=== PATIENT | female | born 1995 | race Caucasian/White ===

== ENCOUNTER 2019-05-08 10:00 | Inpatient (IN) | payer OTHER ==
[~2019-05-08] VITALS: Ht 175.3 cm; Wt 106.9 kg
[2019-05-08] MEDS ORDERED: ACETAMINOPHEN 325 MG TABLET PO PRN (10:30)
[2019-05-08] MEDS ORDERED: PLEASE ENTER HEIGHT AND WEIGHT MC SCH (11:00)
[2019-05-08] MEDS ORDERED: PLEASE ENTER ALLERGIES MC SCH (11:00)
[2019-05-08 12:18] VITALS: BP 134/88
[2019-05-08] MEDS ORDERED: LURA20TA PO (12:56)
[2019-05-08] MEDS ORDERED: POLYETHYLENE GLYCOL 17 GM PACKET PO PRN (13:00)
[2019-05-08] MEDS ORDERED: BISACODYL 10 MG SUPP PR PRN (13:00)
[2019-05-08] MEDS ORDERED: ONDANSETRON ODT 4 MG PO PRN (13:00)
[2019-05-08 19:32] VITALS: BP 129/85
[2019-05-08] MEDS: LURASIDONE 20 MG TABLET PO SCH (20:59)
[2019-05-08] MEDS: BENZTROPINE 1 MG TABLET PO SCH (20:59)
[2019-05-08] MEDS ORDERED: DOCUSATE 100 MG CAPSULE PO PRN (21:00)
[2019-05-09 06:01] LABS: BASOPHILS # (AUTO) 0.02 x10^3/uL (0-0.1); BASOPHILS % (AUTO) 0 % (0-1); EOSINOPHILS # (AUTO) 0.27 x10^3/uL (0-0.4); EOSINOPHILS % (AUTO) 2 % (1-7); LYMPHOCYTES # (AUTO) 2.43 x10^3/uL (1-3.4); LYMPHOCYTES % (AUTO) 22 % (22-44); MD NO; MEAN CORPUSCULAR HEMOGLOBIN 28.6 pg (27.0-34.8); MEAN CORPUSCULAR VOLUME 89.4 fL (80-100); MEAN PLATELET VOLUME 8.7 fL (7.4-10.4); MONOCYTES # (AUTO) 1.07 x10^3/uL (0.2-0.8); MONOCYTES % (AUTO) 10 % (2-9); NEUTROPHILS # (AUTO) 7.48 x10^3/uL (1.8-6.8); NEUTROPHILS % (AUTO) 66 % (42-75); PLATELET COUNT 241 x10^3/uL (130-400); RED CELL DISTRIBUTION WIDTH 14.5 % (9.6-15.2)
[2019-05-09 06:24] LABS: ANION GAP 8 mmol/L (5-15); CALCIUM 9.2 mg/dL (8.5-10.1); CHLORIDE 109 mmol/L (98-107)
[2019-05-09 06:40] LABS: HCT (SEDRATE) 42.9 % (34.6-47.8)
[2019-05-09 06:51] LABS: CHOL/HDL RATIO 3.4; CHOLESTEROL, TOTAL 117 mg/dL (140-239); CREATININE 0.85 mg/dL (0.55-1.02); FREE T4 (FREE THYROXINE) 1.12 ng/dL (0.76-1.46); HDL CHOL % 29 % (28-40); HDL CHOLESTEROL (DIRECT) 34 mg/dL (40-60); LDL CHOLESTEROL,CALCULATED 66 mg/dL (54-169); LDL/HDL RATIO 1.9 (0.5-3.0); THYROID STIMULATING HORMONE 0.453 mIU/L (0.358-3.740); TRIGLYCERIDES 85 mg/dL (50-200); VLDL CHOLESTEROL 17 mg/dL (0-25)
[2019-05-09 07:30] VITALS: BP 118/70
[2019-05-09] MEDS ORDERED: NICOTINE 14MG/24 HR PATCH.TD24 ONE (09:04)
[2019-05-09] MEDS: ARIPIPRAZOLE 10 MG TABLET PO SCH (09:06)
[2019-05-09] MEDS: NICOTINE 14MG/24 HR PATCH.TD24 TD SCH (09:12)
[2019-05-09 16:22] LABS: CULTURE INDICATED? YES; MICROSCOPIC AUTO
[2019-05-09 19:41] VITALS: BP 104/64
[2019-05-09] MEDS: BENZTROPINE 1 MG TABLET PO SCH (20:36)
[2019-05-09] MEDS: LURASIDONE 20 MG TABLET PO SCH (20:36)
[2019-05-10 07:00] VITALS: BP 136/97
[2019-05-10] MEDS: ARIPIPRAZOLE 10 MG TABLET PO SCH (08:52)
[2019-05-10] MEDS: NICOTINE 14MG/24 HR PATCH.TD24 TD SCH (08:56)
[2019-05-10] MEDS ORDERED: BENZ1TAB61 PO (16:10)
[2019-05-10] MEDS ORDERED: NICO-486 TD (16:10)
[2019-05-10] MEDS ORDERED: ARIP10TA33 PO (16:10)
[2019-05-10] MEDS ORDERED: LURA20TA PO (16:10)
[2019-05-10 19:37] VITALS: BP 119/82
[2019-05-10] MEDS: LURASIDONE 20 MG TABLET PO SCH (20:13)
[2019-05-10] MEDS: BENZTROPINE 1 MG TABLET PO SCH (20:13)
[2019-05-11 07:18] VITALS: BP 109/72
[2019-05-11] MEDS: ARIPIPRAZOLE 10 MG TABLET PO SCH (08:37)
[2019-05-11] MEDS: NICOTINE 14MG/24 HR PATCH.TD24 TD SCH (08:39)
== END 2019-05-11 13:05 | disposition home or self-care (01) | DRG 885 ==
LOC: 3E 10:27
PROVIDERS: ADMIT Psychiatry & Neurology Psychosomatic Medicine; ATTEND Psychiatry & Neurology Psychosomatic Medicine
DX: F31.30 Bipolar disorder, current episode depressed, mild or moderate severity, unspecified (principal); R45.851 Suicidal ideations; E66.9 Obesity, unspecified; F60.3 Borderline personality disorder; Z68.34 Body mass index [BMI] 34.0-34.9, adult
CPT/HCPCS: 36415; 71045; 80048; 80061; 81001; 82140; 82607; 84439; 84443; 85025; 85651; 86592; 87086; 93005; Q0162